=== PATIENT | male | born 1990 | race Two or more races ===

== ENCOUNTER 2019-12-04 15:00 | Emergency (ER) | payer MEDICAID ==
[~2019-12-04] VITALS: Ht 170.2 cm; Wt 75.0 kg
[2019-12-04 15:23] VITALS: BP 142/88
== END 2019-12-04 17:03 | disposition home or self-care (01) ==
LOC: ER 15:00
DX: F18.10 Inhalant abuse, uncomplicated (principal); F10.129 Alcohol abuse with intoxication, unspecified; R41.82 Altered mental status, unspecified; F12.10 Cannabis abuse, uncomplicated; I49.9 Cardiac arrhythmia, unspecified; Z98.890 Other specified postprocedural states; Y90.9 Presence of alcohol in blood, level not specified
CPT/HCPCS: 93005; 99283